=== PATIENT | female | born 1975 | race Two or more races ===

== ENCOUNTER 2018-07-16 06:39 | Emergency (ER) | payer SELFPAY ==
--- NOTE | 2018-07-16 07:26 | ER Document Report ---
ED General - General Chief Complaint: Back Pain Stated Complaint: BACK PAIN Time Seen by Provider: 07/16/18 07:23 Mode of Arrival: Ambulatory Information source: Patient, Relative TRAVEL OUTSIDE OF THE [place] IN LAST 30 DAYS: No - HPI Notes: 43-year-old female presents to the ED with complaints of lower back pain that has been occurring for the last 3 months. Patient denies any trauma to her lower back. Patient did have an lumbar spine x-ray done on February 15, 2018 which showed no acute findings. Patient states this pain is exactly the pain that she has been experiencing over the last 3 months. Reports pain is a dull ache 4 out of 10, persistent. Denies fevers, chills, chest pain,palpitations, shortness of breath, dyspnea, nausea, vomiting, diarrhea, abdominal pain, hematuria,blurred vision, double vision, loss of vision, speech changes, LH, dizziness, syncope, headaches, wheezing, ST, URI, neck pain, weakness, bowel or bladder dysfunction, saddle anesthesia, numbness or tingling in bilateral upper or lower extremities equally, muscle paralysis, weakness in bilateral upper or lower extremities equally or rash. Denies IV drug use. - Related Data Allergies/Adverse Reactions: Penicillins Allergy (Verified 07/16/18 07:28) Past Medical History - General Information source: Patient - Social History Smoking Status: Unknown if Ever Smoked Family History: Reviewed & Not Pertinent Renal/ Medical History: Denies: Hx Peritoneal Dialysis Past Surgical History: Reports: Hx Cholecystectomy Review of Systems - Review of Systems Constitutional: No symptoms reported EENT: No symptoms reported Cardiovascular: No symptoms reported Respiratory: No symptoms reported Gastrointestinal: No symptoms reported Genitourinary: No symptoms reported Female Genitourinary: No symptoms reported Musculoskeletal: See HPI Skin: No symptoms reported Hematologic/Lymphatic: No symptoms reported Neurological/Psychological: No symptoms reported Physical Exam - Vital signs Vitals: Temp Pulse Resp BP Pulse Ox 98.1 F 70 16 101/58 L 99 07/16/18 06:45 07/16/18 06:45 07/16/18 06:45 07/16/18 06:45 07/16/18 06:45 - Notes Notes: PHYSICAL EXAMINATION: GENERAL: Well-appearing, well-nourished and in no acute distress. HEAD: Atraumatic, normocephalic. EYES: Pupils equal round and reactive to light, extraocular movements intact, conjunctiva are normal. ENT: Nares patent, oropharynx clear without exudates. Moist mucous membranes. NECK: Normal range of motion, supple without lymphadenopathy. full APROM of cervical spine. no cervical spinal or paraspinal tenderness. negative spurlings test. Photoengraver Apprentice + 2 bilaterally and equally. Dtr +2 bilaterally and equally in BUE. Perrla, full eomi. Face symmetrical. No rashes observed. Point tenderness to right paraspinal muscles near C6. No lymphadenopathy. Full APROM with shoulders. TM intact bilaterally. No meningismus. No noted lymphadenopathy. LUNGS: Breath sounds clear to auscultation bilaterally and equal. No wheezes rales or rhonchi. HEART: Regular rate and rhythm without murmurs ABDOMEN: Soft, nontender, nondistended abdomen. No guarding, no rebound. No masses appreciated. Female : deferred Musculoskeletal: Normal range of motion, no pitting or edema. No cyanosis.* Pain with flexion and extension at 75 degrees, negative straight leg test. Normal hip rotation. DTR +2 in BLE equally. Strength 5 out of 5 both distally and proximally to bilateral lower extremities normal motor and sensory function in BLE equally. Distal pulses + 2 BLE equally. Noted paraspinal tenderness near L2 and L3. No spinal tenderness. No CVA tenderness bilaterally. Femoral pulses + 2 bilaterally and equally. No abrasions, scars, lacerations, ecchymosis of any recent trauma. normal gait. NEUROLOGICAL: Cranial nerves grossly intact. Normal speech, normal gait. Normal sensory, motor exams PSYCH: Normal mood, normal affect. SKIN: Warm, Dry, normal turgor, no rashes or lesions noted. Course - Re-evaluation Re-evalutation: 07/16/18 09:55 43-year-old female afebrile vitals stable and noticed stress has her to help translate refuses Fara for of acute exacerbation of her chronic lower back pain. Patient had full range of motion of hips, lower back, neck. DTRs + 2 bilateral upper and lower extremities with full motor and sensory function of bilateral lower extremities. Patient states he has not followed up with parts specialist for her back. We will give her a referral today with Dr. Rebecca Toledo. Patient given a shot of Toradol for inflammation control as well as Lidoderm patch. Will discharge patient home with Lidoderm patch and ibuprofen. After performing a Medical Screening Examination, I estimate there is LOW risk for EXPANDING OR RUPTURED ABDOMINAL AORTIC ANEURYSM, CAUDA EQUINA SYNDROME, EPIDURAL MASS ABSCESS OR LESION(S), OSTEOMYELITIS,PERSONAL HISTORY OF CANCER, IMMUNOSUPPERSSSION, HISTORY OF IV DRUG USE, FRACTURE, CORD COMPERSSION, CANCER, RETROPERITONEAL BLEED, SPINAL EPIDURAL HEMATOMA, or HERNIATED DISK CAUSING SEVERE SPINAL STENOSIS, thus I consider the discharge disposition reasonable. I have reevaluated this patient multiple times and no significant life threatening changes are noted. The patient and I have discussed the diagnosis and risks, and we agree with discharging home and close follow-up. We also discussed returning to the Emergency Department immediately if new or worsening symptoms occur with the understanding that symptoms and presentations can change. We have discussed the symptoms which are most concerning (e.g., saddle anesthesia, urinary or bowel incontinence or retention, changing or worsening pain) that necessitate immediate return. - Vital Signs Vital signs: Temp Pulse Resp BP Pulse Ox 98.1 F 70 16 101/58 L 99 07/16/18 06:45 07/16/18 06:45 07/16/18 06:45 07/16/18 06:45 07/16/18 06:45 Discharge - Discharge Clinical Impression: Acute exacerbation of chronic low back pain Condition: Stable Disposition: HOME, SELF-CARE Instructions: Low Back Pain ([facility]), Warm Packs ([facility]), Pain Medication Injection ([facility]) Additional Instructions: You have been seen in the Emergency Department (ED) today for back pain. Your workup and exam have not shown any acute abnormalities and you are likely suffering from muscle strain or possible problems with your discs, but there is no treatment that will fix your symptoms at this time. Please take the naproxen that has been prescribed as directed. You should also purchase a local lidocaine cream such as "aspercreme with lidocaine" and use per bottle instructions to the affected area. Apply heat to the area as often as you are able. Continue to keep active and avoid prolonged periods of bed rest. Please follow up with your doctor as soon as possible regarding today's ED visit and your back pain. Return to the ED for worsening back pain, fever, weakness or numbness of either leg, or if you develop either (1) an inability to urinate or have bowel movements, or (2) loss of your ability to control your bathroom functions (if you start having "accidents"), or if you develop other new symptoms that concern you.concern you. Prescriptions: Ibuprofen 600 mg PO QIDP PRN #20 tablet PRN Reason: Lidocaine [Lidoderm 5% (700 mg) Transdermal Patch] 1 patch TP DAILY #30 adh..patch Referrals: CARLEE GARCIA MD [COMMUNITY BASED STAFF] - Follow up as needed REBECCA CASTANEDA MD [ACTIVE STAFF] - Follow up as needed Print Language: Upper Sorbian
[2018-07-16] MEDS ORDERED: LIDOCAINE 5% (700 MG) TRANSDERMAL ADH..PATCH TP ONE (07:52)
[2018-07-16] MEDS ORDERED: KETOROLAC TROMETHAMINE 60 MG/2 ML SDV IM ONE (07:52)
[2018-07-16 08:37] VITALS: BP 108/67
== END 2018-07-16 08:35 | disposition home or self-care (01) ==
LOC: EDBD → MERGE 06:39 → ER 06:39
DX: M54.5 Low back pain (principal); G89.29 Other chronic pain
CPT/HCPCS: 99283; 96372; J1885

== ENCOUNTER 2018-07-17 08:34 | Emergency (ER) | payer SELFPAY ==
[2018-07-17] MEDS ORDERED: MORPHINE SULFATE 10 MG/ML INJ IM ONE (10:26)
[2018-07-17] MEDS ORDERED: DIAZEPAM 5 MG TABLET PO ONE (10:27)
[2018-07-17 11:09] LABS: APPEARANCE,URINE CLEAR; BILIRUBIN,URINE NEGATIVE (NEGATIVE); COLOR,URINE YELLOW; GLUCOSE, URINE NEGATIVE (NEGATIVE); KETONES,URINE NEGATIVE (NEGATIVE); LEUKOCYTE ESTERASE,URINE NEGATIVE (NEGATIVE); NITRITE,URINE NEGATIVE (NEGATIVE); PROTEIN,URINE NEGATIVE (NEGATIVE); URINE SPECIFIC GRAVITY 1.018; UROBILINOGEN,URINE NEGATIVE mg/dL (<2.0)
[2018-07-17 11:14] LABS: ANION GAP 13 (5-19); BLOOD UREA NITROGEN 8 mg/dL (7-20); CALCIUM 9.5 mg/dL (8.4-10.2); CARBON DIOXIDE 22 mmol/L (22-30); CHLORIDE 107 mmol/L (98-107); GLUCOSE 93 mg/dL (75-110); POTASSIUM 4.3 mmol/L (3.6-5.0); SODIUM 142.4 mmol/L (137-145)
--- NOTE | 2018-07-17 11:46 | ER Document Report ---
ED General - General Chief Complaint: Back Pain Stated Complaint: BACK/LEG PAIN Time Seen by Provider: 07/17/18 09:27 Mode of Arrival: Ambulatory Information source: Patient, Relative, [facility] Records Notes: 43-year-old female with no reported past medical history presents with complaint of back pain. Back pain is located from her cervical spine down to her lumbar spine. It is located in the paraspinal musculature. There is no midline tenderness. Patient describes it as a throbbing aching pain that is not relieved with Motrin. Patient has been seen multiple times for back pain including yesterday. Imaging has been performed and negative. She denies any injury, heavy lifting or prior accidents. Patient denies leg weakness, difficulty ambulating, saddle anesthesia, urinary retention, fecal incontinence and history of IV drug use. TRAVEL OUTSIDE OF THE [place] IN LAST 30 DAYS: No - HPI Onset: Other Onset/Duration: Gradual, Persistent, Worse Quality of pain: Achy, Throbbing Severity: Mild Associated symptoms: denies: Chest pain, Fever, Nausea, Vomiting, Shortness of breath Exacerbated by: Denies Relieved by: Denies Similar symptoms previously: Yes Recently seen / treated by doctor: Yes - 07/17/18 - Related Data Allergies/Adverse Reactions: Penicillins Allergy (Verified 07/17/18 08:58) Past Medical History - General Information source: Patient, [facility] Records - Social History Smoking Status: Never Smoker Chew tobacco use (# tins/day): No Frequency of alcohol use: None Drug Abuse: None Lives with: Spouse/Significant other Family History: Reviewed & Not Pertinent Patient has suicidal ideation: No Patient has homicidal ideation: No - Medical History Medical History: Negative Renal/ Medical History: Denies: Hx Peritoneal Dialysis Past Surgical History: Reports: Hx Cholecystectomy Review of Systems - Review of Systems Notes: REVIEW OF SYSTEMS: CONSTITUTIONAL : Denies fever, chills, or sweats. Denies recent illness. Denies weight loss, recent hospitalizations. EENT: Denies visual changes, eye pain. Denies nasal or sinus congestion or discharge. Denies sore throat, oral lesions, difficulty swallowing. CARDIOVASCULAR: Denies chest pain. Denies palpitations. Denies lower extremity edema. RESPIRATORY: Denies cough, cold, or chest congestion. Denies shortness of breath, wheezing. GASTROINTESTINAL: Denies abdominal pain or distention. Denies nausea, vomiting , or diarrhea. Denies blood in vomitus, stools, or per rectum. Denies black, tarry stools. Denies constipation. GENITOURINARY: Denies difficulty urinating, painful urination, frequency, blood in urine, or vaginal discharge. MUSCULOSKELETAL: Denies joint pain or swelling. SKIN: Denies rash, lesions or sores. HEMATOLOGIC : Denies easy bruising or bleeding. LYMPHATIC: Denies swollen glands. NEUROLOGICAL: Denies confusion or altered mental status. Denies passing out or loss of consciousness. Denies dizziness or lightheadedness. Denies headache. Denies weakness or paralysis. Denies problems difficulty with ambulation, slurred speech. Denies sensory loss, numbness, or tingling. Denies seizures. PSYCHIATRIC: Denies anxiety or stress. Denies depression, suicidal ideation, or homicidal ideation. Denies visual or auditory hallucinations. Physical Exam - Vital signs Vitals: Temp Pulse Resp BP Pulse Ox 98.0 F 77 20 111/68 99 07/17/18 08:38 07/17/18 08:38 07/17/18 08:38 07/17/18 08:38 07/17/18 08:38 Interpretation: No: Tachycardic, Hypoxic, Febrile - Notes Notes: PHYSICAL EXAMINATION: GENERAL: Well-appearing, well-nourished and in no acute distress. HEAD: Atraumatic, normocephalic. EYES: Pupils equal round and reactive to light, extraocular movements intact, conjunctiva are normal. ENT: Nares patent, oropharynx clear without exudates. Moist mucous membranes. NECK: Normal range of motion, supple without lymphadenopathy LUNGS: Breath sounds clear to auscultation bilaterally and equal. No wheezes rales or rhonchi. HEART: Regular rate and rhythm without murmurs ABDOMEN: Soft, nontender, nondistended abdomen. No guarding, no rebound. No masses appreciated. Female : deferred Musculoskeletal: Normal range of motion, no pitting or edema. No cyanosis. Diffuse bilateral paraspinal tenderness of the thoracic and lumbar spine. No midline tenderness. Straight leg raise negative bilaterally. 5/5 strength in dorsi and plantar flexion. NEUROLOGICAL: Cranial nerves grossly intact. Normal speech, normal gait. Normal sensory, motor exams. Straight leg raise negative bilaterally. 5/5 strength in dorsi and plantar flexion. Patient sits up and ambulates easily. She is able to go up on her toes and up on her heels. PSYCH: Normal mood, normal affect. SKIN: Warm, Dry, normal turgor, no rashes or lesions noted. Course - Re-evaluation Re-evalutation: Laboratory 07/17/18 07/17/18 10:26 10:26 Sodium 142.4 Potassium 4.3 Chloride 107 Carbon Dioxide 22 Anion Gap 13 BUN 8 Creatinine 0.51 L Est GFR ( Amer) > 60 Est GFR (Non-Af Amer) > 60 Glucose 93 Calcium 9.5 Urine Color YELLOW Urine Appearance CLEAR Urine pH 5.0 Ur Specific [employer] 1.018 Urine Protein NEGATIVE Urine Glucose (UA) NEGATIVE Urine Ketones NEGATIVE Urine Blood SMALL H Urine Nitrite NEGATIVE Urine Bilirubin NEGATIVE Urine Urobilinogen NEGATIVE Ur Leukocyte Esterase NEGATIVE Urine WBC (Auto) 1 Urine RBC (Auto) 2 Squamous Epi Cells Auto 3 Urine Mucus (Auto) OCC Urine Ascorbic Acid NEGATIVE Urine HCG, Qual NEGATIVE 07/17/18 12:33 43-year-old female returns for the second day in a row with complaint of diffuse upper and lower back pain. Patient has been seen multiple times for similar symptoms. She has diffuse paraspinal tenderness of the thoracic and lumbar spine without midline tenderness. Upon arrival vitals reviewed and the patient is afebrile, normotensive and not hypoxic. She has no red flag symptoms including fever, saddle anesthesia, urinary retention, fecal incontinence, leg weakness, history of IV drug use. Patient did receive IM morphine and Valium and on reevaluation she reports 0 improvement in her pain. Toradol and Lehigh were then administered. Previous x-rays were reviewed as well as previous documentation from her prior visits. This seems to occur once a month and could be associated with her menstrual cycle. Patient was advised that she will need to be seen by her primary care physician for further pain management. Patient provided the opportunity to ask questions, and express concerns. Discharge instructions discussed. Patient is agreeable with discharge home. Return indications explained and discussed with the patient who displays understanding. Patient encouraged to return to the emergency department immediately with any concerns. 07/17/18 12:37 - Vital Signs Vital signs: Temp Pulse Resp BP Pulse Ox 98.7 F 68 18 116/70 98 07/17/18 12:32 07/17/18 12:32 07/17/18 12:32 07/17/18 12:32 07/17/18 12:32 - Laboratory Result Diagrams: 07/17/18 10:26 Laboratory results interpreted by me: 07/17/18 07/17/18 10:26 10:26 Creatinine 0.51 L Urine Blood SMALL H - Diagnostic Test Radiology reviewed: Image reviewed, Reports reviewed Discharge - Discharge Clinical Impression: Upper back pain, chronic, Cervical pain (neck), Acute exacerbation of chronic low back pain Chronic back pain Qualifiers: Back pain location: low back pain Back pain laterality: bilateral Sciatica presence: without sciatica Qualified Code(s): M54.5 - Low back pain Condition: Good Disposition: HOME, SELF-CARE Instructions: Ice Packs ([facility]), Low Back Pain ([facility]), Muscle Strain ([facility]), Pain Medication Injection ([facility]) Additional Instructions: Your lab work and urinalysis were normal today. I reviewed x-rays of your lumbar spine that were taken on a prior visit and these were within normal limits. You need to follow-up with your primary care physician for this chronic pain issue. Prescriptions: Hydrocodone/Acetaminophen [Lehigh 5-325 mg Tablet] 1 tab PO Q6H #10 tablet Referrals: YUSUF PASCAL MD [Primary Care Provider] - Follow up as needed
[2018-07-17] MEDS ORDERED: KETOROLAC TROMETHAMINE 60 MG/2 ML SDV IM ONE (12:07)
[2018-07-17] MEDS ORDERED: OXYCODONE-ACETAMINOPHEN 5-325 MG TABLET PO ONE (12:07)
[2018-07-17 12:33] VITALS: BP 116/70
== END 2018-07-17 12:33 | disposition home or self-care (01) ==
LOC: EDBD 08:34 → ER 08:34
DX: G89.29 Other chronic pain (principal); M54.6 Pain in thoracic spine; M54.2 Cervicalgia; Z88.0 Allergy status to penicillin; Z90.49 Acquired absence of other specified parts of digestive tract
CPT/HCPCS: 99283; 96372; 36415; 81025; 80048; 81001; J1885; J2270

== ENCOUNTER 2019-06-09 16:03 | Emergency (ER) | payer SELFPAY ==
[2019-06-09 16:12] VITALS: BP 103/62
[2019-06-09] MEDS ORDERED: KETOROLAC TROMETHAMINE 60 MG/2 ML SDV IM ONE (17:46)
--- NOTE | 2019-06-09 18:01 | ER Document Report ---
HPI - HPI Time Seen by Provider: 06/09/19 16:45 Pain Level: 4 Notes: 44-year-old female presents to the ED for complaints of neck pain which is causing a headache, lower back pain, patient states this pain started yesterday, patient had history of myalgias in the past. Patient and this provider as well as nurse, receded through [facility]. Patient states she took ibuprofen yesterday with relief. Reports pain more when she is sitting. Denies any injury or falling. Patient's last menstrual period was a week ago denies . Patient has been seen twice in this ER for complaints of myalgia, has not follow-up with primary care provider. Denies fevers, chills, chest pain,palpitations, shortness of breath, dyspnea, nausea, vomiting, diarrhea, abdominal pain, hematuria,blurred vision, double vision, loss of vision, speech changes, LH, dizziness, syncope, headaches, wheezing, ST, URI, weakness, bowel or bladder dysfunction, saddle anesthesia, numbness or tingling in bilateral upper or lower extremities equally, muscle paralysis, weakness in bilateral u pper or lower extremities equally or rash. - REPRODUCTIVE Reproductive: DENIES: : Past Medical History - General Information source: Patient - Social History Smoking Status: Never Smoker Family History: Reviewed & Not Pertinent Renal/ Medical History: Denies: Hx Peritoneal Dialysis Past Surgical History: Reports: Hx Cholecystectomy Vertical Provider Document - CONSTITUTIONAL Agree With Documented VS: Yes Notes: PHYSICAL EXAMINATION: GENERAL: Well-appearing, well-nourished and in no acute distress. HEAD: Atraumatic, normocephalic. EYES: Pupils equal round and reactive to light, extraocular movements intact, conjunctiva are normal. ENT: Nares patent, oropharynx clear without exudates. Moist mucous membranes. NECK: Normal range of motion, supple without lymphadenopathy. full APROM of cervical spine, no noted cervical spinal tenderness on palpation negative spur lings test. Gasoline Finisher + 2 bilaterally and equally. Dtr +2 bilaterally and equally in BUE. Perrla, full eomi. Face symmetrical. No rashes observed. Point tenderness to right and left paraspinal muscles near C6. No lymphadenopathy. Full APROM with shoulders. TM intact bilaterally. No meningismus. No noted lymphadenopathy. LUNGS: Breath sounds clear to auscultation bilaterally and equal. No wheezes ra les or rhonchi. HEART: Regular rate and rhythm without murmurs ABDOMEN: Soft, nontender, nondistended abdomen. No guarding, no rebound. No masses appreciated. Female : deferred Musculoskeletal: Normal range of motion, no pitting or edema. No cyanosis Pain with flexion and extension at 70 degrees, negative straight leg test. Normal hip rotation. DTR +2 in BLE equally. Strength 5 out of 5 both distally and proximally to bilateral lower extremities normal motor and sensory function in BLE equally. Distal pulses + 2 BLE equally. Noted paraspinal tenderness near L2 and L3 bilaterally. No spinal tenderness. No CVA tenderness bilaterally. Femoral pulses + 2 bilaterally and equally. No abrasions, scars, lacerations, ecchymosis of any recent trauma. normal gait. NEUROLOGICAL: Cranial nerves grossly intact. Normal speech, normal gait. Normal sensory, motor exams PSYCH: Normal mood, normal affect. SKIN: Warm, Dry, normal turgor, no rashes or lesions noted. - INFECTION CONTROL TRAVEL OUTSIDE OF THE [place] IN LAST 30 DAYS: No Course - Re-evaluation Re-evalutation: 06/09/19 18:09 44-year-old female for evaluation of neck pain and changing headache with lower back pain, bilateral presentation. Febrile vitals stable no distress, patient has had recurrent myalgias muscle spasms to the course of the last 6 months, seen by different providers. Patient did not follow-up with primary care provider. Clinical examination shows some pain with flexion at 70 degrees. Patient states she had some relief with ibuprofen. Will give patient Toradol injection and sent home with Robaxin muscle relaxer 06/09/19 18:09 - Vital Signs Vital signs: Temp Pulse Resp BP Pulse Ox 97.8 F 65 14 103/62 100 06/09/19 16:11 06/09/19 16:11 06/09/19 16:11 06/09/19 16:11 06/09/19 16:11 Discharge - Discharge Clinical Impression: Lower back pain, Neck pain Condition: Stable Disposition: HOME, SELF-CARE Instructions: Neck Injury (Cervical Strain) ([facility]), Low Back Pain ([facility]), Chronic Back Pain ([facility]), Stretching Exercises for the Back ([facility]) Additional Instructions: *You have been evaluated for back pain *Take medication as prescribed *Rest/Ice- heat as directed *Follow up with a primary care provider *Return to ED for worsening condition, changes, needs do not drive, or operate heavy machinery while taking medications discussed impairment cognitive function and neuro changes. Follow-up with order management specialist and primary care provider within the next 24 to 48 hours. If symptoms become worse such as worsening back pain, fever, vomiting, severe neck pain, chest pain, shortness of breath return to the emergency room immediately. Return immediately for any new or worsening symptoms. Follow up with primary care provider, call tomorrow to make followup appointment. Referrals: LORNA JERRY MD [ACTIVE STAFF] - Follow up in 3-5 days CARLEE GARCIA MD [COMMUNITY BASED STAFF] - Follow up in 3-5 days
== END 2019-06-09 18:19 | disposition home or self-care (01) ==
LOC: ER 16:03
DX: M54.2 Cervicalgia (principal); M54.5 Low back pain; R51 Headache
CPT/HCPCS: 99283; 96372; J1885